=== PATIENT | female | born 1985 | race Caucasian/White ===

== ENCOUNTER → 2016-06-25 | Outpatient (CLI) | payer OTHER ==
[~2016-06-25] MED LIST: ETONMIS VAGRING; LRT5 PO; MULT-506 PO; OXYC-57 PO; TETR250C3 PO
[2016-06-25 13:12] LABS: BASO % 0.5 %; BASO ABS # 0.03 K/uL (0-0.2); COMPLETE YES; EOS % 5.1 %; HEMATOCRIT 38.8 % (37-47); IG% 0.2 %; LYMPH % 45.2 %; LYMPH ABS # 2.85 K/uL (1.2-3.4); MEAN CELL VOLUME 85.5 fL (80-100); MEAN CORPUSCULAR HEMOGLOBIN 29.5 pg (25-34); MEAN CORPUSCULAR HGB CONC 34.5 g/dl (32-36); MEAN PLATELET VOLUME 9.4 fL (7.4-10.4); MONO % 8.1 %; NEUT % 40.9 %; PLATELET COUNT 231 K/uL (130-400); RED BLOOD COUNT 4.54 M/uL (4.2-5.4); WHITE BLOOD COUNT 6.31 K/uL (4.8-10.8)
== END | disposition home or self-care (01) ==
LOC: C.LAB1850 11:42
PROVIDERS: ATTEND Obstetrics & Gynecology
DX: Z30.9 Encounter for contraceptive management, unspecified (principal)

== ENCOUNTER → 2016-07-11 | Day surgery (SDC) | payer BC, OTHER ==
[2016-06-25 08:03] VITALS: Ht 165.1 cm; Wt 71.8 kg
--- NOTE | 2016-06-25 12:42 | HISTORY & PHYSICAL EXAMINATION ---
DATE OF ADMISSION: 07/11/2016 ADMITTING DIAGNOSES: Desired permanent surgical sterilization. ADMISSION HISTORY: The patient is a 31-year-old 0, using the NuvaRing, who is admitted for permanent surgical sterilization. The patient adamantly desires no childbearing capacity. She understands that this is an irreversible procedure and wishes to have the tubal ligation. PAST MEDICAL HISTORY: OB: Nulligravida. 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 MEDICAL: None. SURGICAL: Breast surgery, hernia repairs, and wisdom teeth extraction. ALLERGIES: BIAXIN. SOCIAL HISTORY: No smoking. FAMILY HISTORY: Noncontributory. REVIEW OF SYSTEMS: As per HPI. ADMISSION PHYSICAL EXAMINATION: GENERAL: Shows a pleasant female in no acute distress. VITAL SIGNS: Blood pressure 126/86, height of 5 feet 4 inches, and weight 159 pounds. HEENT EXAMINATION: Unremarkable. NECK: Supple. LUNGS: Clear. HEART: With a regular rhythm and rate. ABDOMEN: Soft and nontender. PELVIC: Shows normal external genitalia. Vaginal vault is pink and rugated. There is a NuvaRing in the vaginal vault. The cervix is nulliparous and closed. Bimanual examination shows a small anterior uterus. The adnexa show no palpable masses. RECTAL: Confirmatory. EXTREMITIES: Show no deep calf tenderness. NEUROLOGIC: Grossly intact. IMPRESSION: A 31-year-old 0, requesting permanent surgical sterilization. PLAN: The risks, benefits and alternatives to the surgery have been discussed. While the benefits will be permanent surgical sterilization, the risks are bleeding, infection, inadvertent injury to bowel or bladder, failure of the procedure itself. Failure rate quoted at 3-5%. Finally, we have discussed the high risk of regret from surgery in a nulligravid age 31. The patient adamantly desires no further childbearing capacity. We have also discussed the dysfunctional cycles will continue and that in order to continue with regular menstrual cycle, she may need to continue with the NuvaRing. The patient understands that. Permit has been signed and she wishes to proceed.
[~2016-07-11] VITALS: Ht 165.1 cm; Wt 71.8 kg
[~2016-07-11] MED LIST changes: +ATROPINE SULFATE 0.1 MG/ML 5ML SYR IV PRN; +DEXAMETHASONE SOD INJ 4 MG/ML VIAL IV PRN; +DEXAMETHASONE SOD INJ 4 MG/ML VIAL ONE; +EpHEDrine SULFATE INJ 50 MG/ML AMP IV PRN; +EpHEDrine SULFATE INJ 50 MG/ML AMP ONE; +FENTANYL CITRATE INJ 50 MCG/1 ML 2 ML VIAL IV PRN; +FENTANYL CITRATE INJ 50 MCG/1 ML 2 ML VIAL ONE; +GLYCOPYRROLATE INJ 0.2 MG/ML VIAL ONE; +IBUPROFEN 200 MG TAB ONE; +IBUPROFEN 600 MG TAB PO PRN; +KETOROLAC TROMETHAMINE 30 MG/ML VIAL IV. PRN; +KETOROLAC TROMETHAMINE 30 MG/ML VIAL ONE; +LABETALOL HCL IV 5 MG/ML 20ML IV PRN; +LACTATED RINGER'S 1000ML 1,000 ML IV SCH; +LIDOCAINE HCL 2% 2 ML VIAL (20MG/ML) ONE; -LRT5 PO; +METOCLOPRAMIDE HCL INJ 5 MG/ML 2 ML VIAL IV PRN; +MIDAZOLAM HCL 1 MG/ML 2ML VIAL ONE; +MoRPHine SULFATE 10 MG/ML CARP/VIAL IV PRN; +NEOSTIGMINE METHYLSULFATE 5 MG/5 ML SYR ONE; +ONDANSETRON INJ 2 MG/ML 2 ML VIAL IV PRN; +ONDANSETRON INJ 2 MG/ML 2 ML VIAL ONE; +OXYCODONE/ACETAMINOPHEN 5-325 TAB PO PRN; +PHENYLEPHRINE 100MCG/ML 5ML SYR IV PRN; +PHENYLEPHRINE HCL INJ 10 MG/ML VIAL ONE; +PROPOFOL IV EMULSION 10 MG/ML 20 ML VIAL IV ONE; +ROCURONIUM BROMIDE 10 MG/ML 5 ML VIAL ONE; +SODIUM CHLORIDE 0.9% 1000ML 1,000 ML IV SCH; +SUCCINYLCHOLINE CHLORIDE 20 MG/ML 10 ML VIAL IV ONE; -TETR250C3 PO
--- NOTE | 2016-07-11 10:06 | History & Physical Bridge - SC ---
H&P Re-Evaluation Bridge Note: I have examined the patient, reviewed the History & Physical and in the interval since the performance of the History & Physical I have noted the following changes of clinical significance: No changes noted
--- NOTE | 2016-07-11 10:47 | Discharge Instructions-SurgCtr ---
Discharge Instructions Visit Reason for Visit: Contraceptive Management Discharge Discharge Diagnosis / Problem: same Activity Recommendations Activity Limitations: as noted below Anesthesia . Post Anesthesia Instructions: If you have had General Anesthesia or IV Sedation: * Do not drive today. * Resume driving when surgeon permits. * Do not make important decisions or sign legal documents today. * Call surgeon for: 1. Temperature elevations greater than 101 degrees F. 2. Uncontrollable pain. 3. Excessive bleeding. 4. Persistent nausea and vomiting. 5. Medication intolerance (nausea, vomiting or rash). * For nausea and vomiting use only clear liquids such as: tea, soda, bouillon until nausea subsides, then gradually increase diet as tolerated. * If you have any concerns or questions, call your surgeon's office. If physician is unavailable and it is an emergency, call 911 or go to the nearest emergency room. . Instructions / Follow-Up Instructions / Follow-Up ACTIVITY RECOMMENDATIONS: * Rest the first 2-3 days. You should be back to your normal activity levels by day 3. * No heavy lifting for 2 weeks. * No intercourse, tampons or douching for 1-2 weeks. * You may shower the next day. * Do not drive anytime that you are taking narcotic pain medicines. RETURN TO SCHOOL/WORK: * May return to school or work after 2-3 days. DIET: Nausea may occur in the immediate post-operative period. If so, take clear liquids such as tea, bouillon, apple juice until all nausea has subsided, then resume usual diet. MEDICATIONS: Resume previous medications unless instructed otherwise by your surgeon. Ibuprofen 200mg 2-3 tablets every 4-6 hours as needed -- OR -- Aleve 2 tablets every 8-12 hours as needed for post-operative discomfort Medications are over the counter. Tylenol may be used if above medications are contraindicated or not preferred. Medication should be taken with food or milk. Do not take on an empty stomach. SPECIAL CARE INSTRUCTIONS: * Check temperature twice daily for one week. report any elevation over 101 degrees. * You may experience some vagina spotting and/or bleeding. This is normal for 1 -2 weeks and should not be heavier than a normal period. If it is unusual in amount, call your physician. * Post-operative discomfort may consist of a sore throat, a "bloated" feeling and pain in the shoulders. these are normal symptoms, which usually only last for 2-3 days. * Remove band-aids tomorrow and shower. There is no need to replace band-aids unless there is drainage or discomfort. FOLLOW UP VISIT: Call your doctor's office for a post-operative 2 week visit if not already scheduled. Diet Recommendations Home Diet: resume previous diet Procedures Procedures Performed: Laparoscopic Tubal Sterilization Pending Studies Studies pending at discharge: no Medical Emergencies . Who to Call and When: Medical Emergencies: If at any time you feel your situation is an emergency, please call 911 immediately. . Non-Emergent Contact Non-Emergency issues call your: [employer] Person Call Non-Emergent contact if: temperature is above 100.5, your pain is not controlled, wound has increased drainage, wound has increased redness, wound has increased pain . . "Provider Documentation" section prepared by Marc Sr.
--- NOTE | 2016-07-11 10:52 | [facility] Post Operative Brief Note ---
Immediate Operative Summary Operative Date Jul 11, 2016. Pre-Operative Diagnosis Desires Permanent Sterilization Post-Operative Diagnosis same Procedure(s) Performed Laparoscopic Tubal Sterilization Surgeon Dr. Chey Sr Master Fire Control Technician Surgeon(s) 0 Estimated Blood Loss MINIMAL Findings Normal appearing tubes/ovaries and appendix. Retrograde menstrual flow. Bilateral tubal sterilization Fluids (cc crystalloids) 1000 Specimens none Drains None Anesthesia General Complication(s) None Disposition Recovery Room / PACU
--- NOTE | 2016-07-11 10:57 | OPERATIVE REPORT ---
DATE OF OPERATION: 07/11/2016 PREOPERATIVE DIAGNOSIS: Desired permanent surgical sterilization. POSTOPERATIVE DIAGNOSIS: Same. PROCEDURE PERFORMED: Bilateral laparoscopic tubal ligation. SURGEON: Dr. Marc Sr. ANESTHESIA: General. FINDINGS: Laparoscopic examination of the pelvis showed normal appearing uterus, tubes, and ovaries bilaterally, normal appearing appendix, and retrograde menstrual flow noted. Bilateral fulguration of the proximal 3rd until resistance met 0. PROCEDURE IN DETAIL: The patient was taken to the operating room and after general anesthesia, was placed in dorsal lithotomy position and draped and prepped in the usual fashion. Bladder was drained of any residual urine. Single tooth tenaculum was used to grasp the anterior lip of the cervix. The cervical os was stenotic and acorn cannula could not be inserted. Tenaculum was removed from the cervix and a sponge stick was placed in the vagina. A small subumbilical incision was made and Veress needle was introduced into the pelvic cavity, which was then insufflated with 3 liters of CO2. Veress needle was removed and a sharp trocar was used to introduce the laparoscope. Pelvic organs were visualized and then under direct laparoscopic guidance, a 5-mm suprapubic trocar was placed. Pelvic organs were visualized with the description as above. Bipolar cautery instrument inserted through the suprapubic trocar. The fallopian tubes were cauterized bilaterally in 3 contiguous lucero until resistance met 0. Hemostasis present. CO2 was allowed to escape from the pelvic cavity. The trocars were removed under direct laparoscopic guidance. Skin incisions were closed with 4-0 Monocryl subcuticular sutures. Sterile dressing was applied. Sponge stick was removed from the vagina. The patient was taken out of dorsal lithotomy to recovery room in satisfactory condition. I attest to the content of the Intraoperative Record and any orders documented therein. Any exceptio ns are noted below.
--- NOTE | 2016-07-11 11:08 | Medical Student: [facility] ---
Immediate Operative Summary Operative Date Jul 11, 2016. Pre-Operative Diagnosis Bilateral Tubal Ligation Permanent Sterilization Post-Operative Diagnosis same Procedure(s) Performed Laparoscopic bilateral tubal ligation with cautery Surgeon Dr. Sr Lockstitch Tunnel Elastic Operator Surgeon(s) None Estimated Blood Loss Minimal Findings Normal appearing uterus, right and left fallopian tubes, and right and left ovaries. Normal appearing appendix. Retrograde menstrual flow was observed throughout the peritoneum. Fluids (cc crystalloids) 1000 cc Specimens None Drains None Anesthesia General Complication(s) None Disposition Recovery Room / PACU
[2016-07-11 11:52] VITALS: TEMP 36.4
--- NOTE | 2016-07-11 12:16 | Anesthesia Progress Nt - [facility] ---
Anesthesia Post Op Note Date & Time Jul 11, 2016 at 12:16 Vital Signs Pain Intensity: 1 Vital Signs Past 12 Hours Date Time Temp Pulse Resp B/P Pulse Ox O2 Delivery O2 Flow Rate FiO2 07/11/16 11:52 36.4 62 16 115/77 100 Room Air 07/11/16 11:46 56 13 100 07/11/16 11:46 56 13 07/11/16 11:45 125/84 07/11/16 11:41 68 18 100 07/11/16 11:41 69 18 07/11/16 11:40 126/78 07/11/16 11:39 61 10 07/11/16 11:39 61 10 100 07/11/16 11:38 36.4 69 20 126/78 98 Room Air 07/11/16 11:35 127/78 07/11/16 11:34 62 9 07/11/16 11:34 62 9 100 07/11/16 11:30 118/75 07/11/16 11:29 52 7 100 07/11/16 11:29 53 7 07/11/16 11:25 124/68 07/11/16 11:24 54 8 100 07/11/16 11:24 54 8 07/11/16 11:20 122/74 07/11/16 11:19 58 7 100 07/11/16 11:19 58 7 07/11/16 11:15 126/78 07/11/16 11:14 62 13 07/11/16 11:14 63 13 100 07/11/16 11:10 140/99 07/11/16 11:09 93 17 100 07/11/16 11:09 94 17 07/11/16 11:05 150/100 07/11/16 11:04 110 24 100 07/11/16 11:04 110 24 07/11/16 11:00 150/95 07/11/16 10:59 101 07/11/16 10:59 101 100 07/11/16 10:59 36.3 107 20 145/96 100 Diffusion Mask 6 07/11/16 09:07 36.6 66 16 124/82 100 Room Air Notes Mental Status: alert / awake / arousable, participated in evaluation Pt Amnestic to Procedure: Yes Nausea / Vomiting: adequately controlled Pain: adequately controlled Airway Patency, RR, SpO2: stable & adequate BP & HR: stable & adequate Hydration State: stable & adequate Anesthetic Complications: no major complications apparent
[2016-07-11 12:23] VITALS: BP 119/75; PULSE 64; O2SAT 99
== END | disposition home or self-care (01) ==
LOC: X.SURG 08:50
PROVIDERS: ATTEND Obstetrics & Gynecology
DX: Z30.2 Encounter for sterilization (principal); N93.8 Other specified abnormal uterine and vaginal bleeding

== ENCOUNTER 2017-01-09 02:00 | Emergency (ER) | payer OTHER ==
[~2017-01-09 02:00] MED LIST changes: -ATROPINE SULFATE 0.1 MG/ML 5ML SYR IV PRN; -DEXAMETHASONE SOD INJ 4 MG/ML VIAL IV PRN; -DEXAMETHASONE SOD INJ 4 MG/ML VIAL ONE; -EpHEDrine SULFATE INJ 50 MG/ML AMP IV PRN; -EpHEDrine SULFATE INJ 50 MG/ML AMP ONE; -FENTANYL CITRATE INJ 50 MCG/1 ML 2 ML VIAL IV PRN; -FENTANYL CITRATE INJ 50 MCG/1 ML 2 ML VIAL ONE; -GLYCOPYRROLATE INJ 0.2 MG/ML VIAL ONE; -IBUPROFEN 200 MG TAB ONE; -IBUPROFEN 600 MG TAB PO PRN; -KETOROLAC TROMETHAMINE 30 MG/ML VIAL IV. PRN; -KETOROLAC TROMETHAMINE 30 MG/ML VIAL ONE; -LABETALOL HCL IV 5 MG/ML 20ML IV PRN; -LACTATED RINGER'S 1000ML 1,000 ML IV SCH; -LIDOCAINE HCL 2% 2 ML VIAL (20MG/ML) ONE; -METOCLOPRAMIDE HCL INJ 5 MG/ML 2 ML VIAL IV PRN; -MIDAZOLAM HCL 1 MG/ML 2ML VIAL ONE; -MoRPHine SULFATE 10 MG/ML CARP/VIAL IV PRN; -NEOSTIGMINE METHYLSULFATE 5 MG/5 ML SYR ONE; -ONDANSETRON INJ 2 MG/ML 2 ML VIAL IV PRN; -ONDANSETRON INJ 2 MG/ML 2 ML VIAL ONE; -OXYCODONE/ACETAMINOPHEN 5-325 TAB PO PRN; -PHENYLEPHRINE 100MCG/ML 5ML SYR IV PRN; -PHENYLEPHRINE HCL INJ 10 MG/ML VIAL ONE; -PROPOFOL IV EMULSION 10 MG/ML 20 ML VIAL IV ONE; -ROCURONIUM BROMIDE 10 MG/ML 5 ML VIAL ONE; -SODIUM CHLORIDE 0.9% 1000ML 1,000 ML IV SCH; -SUCCINYLCHOLINE CHLORIDE 20 MG/ML 10 ML VIAL IV ONE
[2017-01-09] MEDS ORDERED: KETOROLAC TROMETHAMINE 30 MG/ML VIAL ONE (02:40)
[2017-01-09 02:56] LABS: POINT OF CARE TROPONIN I < 0.030 ng/ml (0-0.045)
[2017-01-09] MEDS ORDERED: OPTIRAY 320 IV PRN (04:00)
--- NOTE | 2017-01-09 04:12 | EMERGENCY ROOM VISIT NOTE ---
History Report prepared by Rosibel: Fritz Christensen Under the Supervision of: Dr. Kevin Parekh M.D. First contact with patient: 04:18 Chief Complaint: CHEST PAIN Stated Complaint: PAIN IN CHEST History of Present Illness The patient is a 31 year old female who presents to the Emergency Room with complaints of intermittent chest pain beginning a few weeks ago. She states that her pain begins in the right chest and radiates into her left chest, arm, jaw and upper back. She describes her pain as squeezing. The patient also complains of nausea. Nothing worsens her pain. She denies any vomiting, urinary symptoms, or calf pain. The patient notes that she felt a lump in her left chest tonight as well. She denies any exposure to chemicals. She denies any recent falls or trauma. The patient has a history of tubal ligation and denies any chance of . She has a Nuvaring in place for regulation of her menstrual cycle. She has no personal or family history of blood clots. She denies any recent prolonged travel. The patient has a family history of gallbladder and thyroid problems. Source of History: patient Onset: a few weeks ago Position: chest Quality: other ("squeezing") Timing: intermittent Modifying Factors (Worsening): other (none) Associated Symptoms: + nausea, No vomiting, No urinary symptoms Review of Systems See HPI for pertinent positives & negatives. A total of 10 systems reviewed and were otherwise negative. Past Medical & Surgical Medical Problems: (1) Admission for sterilization Family History No pertinent family history stated. Social History Smoking Status: Never Smoker Occupation Status: employed Current/Historical Medications Scheduled Etonogestrel/Ethinyl Estradiol (Nuvaring), 1 EA VAGRING MONTHLY Multivitamin (Multivitamin), 1 TAB PO DAILY Scheduled PRN Oxycodone/Acetaminophen 5MG/325MG (Percocet 5MG/325MG), 1 TAB PO Q4H PRN for Pain (pain scale 1-5) Allergies Coded Allergies: Adhesives (Verified Allergy, Unknown, "blistering", 07/11/16) Clarithromycin (Verified Allergy, Unknown, ITCHING ON FACE, 07/11/16) Physical Exam Physical Exam GENERAL: Patient is anxious appearing and in minimal distress. HEENT: No acute trauma, normocephalic atraumatic, mucous membranes moist, no nasal congestion, no scleral icterus. NECK: No stridor, no adenopathy, no meningismus, trachea is midline. LUNGS: No dyspnea. Clear to auscultation and equal bilaterally. No wheeze, no rhonchi. HEART: Regular rate and rhythm. No murmurs, rubs, gallops appreciated. ABDOMEN: Soft, nontender, bowel sounds positive, no masses appreciated, no peritonitis. BACK: No midline tenderness, no CVA tenderness EXTREMITIES: Normal motion all extremities, no cyanosis, no edema. NEUROLOGIC: Alert and oriented, no acute motor or sensory deficits, no focal weakness, cranial nerves grossly intact. SKIN: No rash, no jaundice, no diaphoresis. Medical Decision & Procedures ER Provider Diagnostic Interpretation: CT results per statrad and my review. CTA CHEST: No pulmonary embolus identified. Minimal dependent atelectasis on the left. Lungs are otherwise clear. X ray results are stated below per my interpretation: Chest: 1 view: No infiltrate, no effusion, normal cardiac border. Laboratory Results Test 01/09/17 02:37 Bedside D-Dimer > 450 ng/mlFEU (0-450) Bedside Troponin I < 0.030 ng/ml (0-0.045) Laboratory results as reviewed by me. ED Course 0213: The patient was evaluated in room B9. A complete history and physical exam was performed. 0240: Ordered Toradol Inj 30 mg IV. 0302: I reassessed the patient. She is feeling well. She is agreeable to CT chest. 0400: Reevaluated the patient. Discussed results and discharge instructions: she verbalized understanding and agreement. The patient is ready for discharge. Medical Decision Differential: Cardiac Ischemia (STEMI, NSTEMI, Unstable Angina, etc), Aortic Dissection, Arrhythmia, Pulmonary Embolism, Pneumonia, Pneumothorax, MSK, Infectious, Pericarditis/Myocarditis, Esophageal Rupture, Gastrointestinal, amongst other pathologies entertained. 31 yr old female with on and off left upper chest discomfort over last week or so. Vitals good, EKG with some bigeminy though no ischemic findings. Exam with reproducible TTP over left upper chest over spot she notes nodule though I do not appreciate this. CXR clear. POC trop negative and with ongoing for > 6 hours I do not feel this is ACS. Uses -control thus I went ahead with dimer which was moderately positive, went ahead with CT chest which was fortunately negative. Abdominal exam benign. Feeling improved with Toradol. Suspect this is chest wall inflammatory cause. She is stable. No indication for admission at this time. Stressed follow up with PCP. RTED if worsening or other concerns. Suggested NSAIDs and warnings of these. This patient was seen during [facility] down-time and chart completed at later date/time. Please note that times of orders, medications, and testing as well as re-evaluations and consultations may not accurately reflect actual times they were placed/preformed. Impression Primary Impression: Left sided chest pain Scribe Attestation The scribe's documentation has been prepared under my direction and personally reviewed by me in its entirety. I confirm that the note above accurately reflects all work, treatment, procedures, and medical decision making performed by me. Departure Information Dispostion Home / Self-Care Referrals Román Landeros M.D. (PCP) Patient Instructions ED Chest Pain Atypical Unkn Cause, My [facility] Additional Instructions Please follow up with your primary care provider for further evaluation and treatment. Use NSAIDs (Ibuprofen) for discomfort over the next few days.
--- NOTE | 2017-01-09 06:47 | DIAGNOSTIC IMAGING REPORT ---
CT ANGIOGRAM OF THE CHEST CLINICAL HISTORY: Atypical chest pain and elevated d-dimer COMPARISON STUDY: Chest x-ray dated 01/09/2017 TECHNIQUE: Following the IV administration of 104 mL of [id number]-[id number], CT angiogram of the thorax was performed from the thoracic inlet to the lung bases utilizing the pulmonary embolus protocol. Images are reviewed in the axial, sagittal, and coronal planes. IV contrast was administered without complication. MIP imaging was performed. A dose lowering technique was utilized adhering to the principles of ALARA. CT DOSE: FINDINGS: No pathologically enlarged axillary mediastinal or hilar lymph nodes were visualized. There was no evidence of thoracic aortic dilatation. There were no pulmonary artery filling defects to indicate acute pulmonary embolism. No pleural effusions are visualized. There was no evidence of focal pulmonary consolidation. There are minimal dependent atelectatic changes. IMPRESSION: 1. No evidence of acute pulmonary embolism 2. No evidence of focal pulmonary consolidation Electronically signed by: Feng Solorzano M.D. 01/09/2017 6:45 AM Dictated Date/Time: 01/09/2017 6:41 AM
--- NOTE | 2017-01-09 07:38 | DIAGNOSTIC IMAGING REPORT ---
CHEST ONE VIEW PORTABLE HISTORY: Atypical CHEST PAIN COMPARISON: None. FINDINGS: The lungs are clear. Cardiac silhouette is normal in size. No pleural effusions. No pneumothorax. IMPRESSION: No acute process. Electronically signed by: Agustin Florez M.D. 01/09/2017 7:36 AM Dictated Date/Time: 01/09/2017 7:35 AM
[2017-01-09 12:20] LABS: ISTAT CREATININE 1.1 mg/dl (0.6-1.3); ISTAT HEMOGLOBIN 13.3 g/dl (12.0-16.0); ISTAT IONIZED CALCIUM 1.19 mmol/l (1.12-1.32)
== END 2017-01-09 04:17 | disposition home or self-care (01) ==
LOC: C.EDB 02:01
DX: R07.89 Other chest pain (principal); Z88.8 Allergy status to other drugs, medicaments and biological substances; Z91.09 Other allergy status, other than to drugs and biological substances